=== PATIENT | female | born 1945 | race Caucasian/White ===

== ENCOUNTER 2021-07-29 14:00 | Emergency (ER) | payer OTHER ==
[~2021-07-29] VITALS: Ht 167.6 cm; Wt 61.0 kg
[2021-07-29 14:31] VITALS: BP 106/50
[2021-07-29] MEDS ORDERED: HYDROcodone/acetaminophen 5mg/325mg tablet PO ONE (14:50)
[2021-07-29] MEDS ORDERED: LIDOcaine 1% 30ml preserv. free vial IJ STA (19:40)
[2021-07-29] MEDS ORDERED: HYDR-3965 PO (20:02)
== END 2021-07-29 21:16 | disposition home or self-care (01) ==
LOC: ER 14:01
DX: S52.572A Other intraarticular fracture of lower end of left radius, initial encounter for closed fracture (principal); S52.612A Displaced fracture of left ulna styloid process, initial encounter for closed fracture; M25.532 Pain in left wrist; W18.30XA Fall on same level, unspecified, initial encounter; Y93.89 Activity, other specified; Y92.89 Other specified places as the place of occurrence of the external cause; Y99.8 Other external cause status
CPT/HCPCS: 29125; 73110; 99283